=== PATIENT | male | born 1950 | race Caucasian/White ===

== ENCOUNTER 2017-02-09 08:52 | Day surgery (SDC) | payer BC ==
--- NOTE | ~2017-02-09 | EGD ---
EGD REPORT [facility] [address] [address] NAME: MARK HAYWOOD KRISTOPHER : [birth year] STATUS : REG [facility]#: [id number] AGE: 66 ADM/REG DATE : 02/09/17 MR#: [id number] REPORT SERV DATE: 02/09/17 DICTATED BY: DATE: REPORT STATUS : Draft TRANSCRIBED BY: [employer] DATE: 02/09/17 [facility] Patient Name: Mark Haywood Date of : 1950 Attending MD: SALOIN LANTIGUA MD Procedure Date No Time: 02/09/2017 Procedure: Colonoscopy Indications: Abdominal pain, Hematochezia, Change in bowel habits; Family history colon cancer Referring MD: SOFÍA GONZALEZ JR. Medicines: Monitored Anesthesia Care Complications: No immediate complications. Procedure: Pre-Anesthesia Assessment: - ASA Grade Assessment: II - A patient with mild systemic disease. After I obtained informed consent, the scope was passed under direct vision. Throughout the procedure, the patient's blood pressure, pulse, and oxygen saturations were monitored continuously. The PCF [id number] was introduced through the anus and advanced to the cecum, identified by appendiceal orifice and ileocecal valve. The colonoscopy was performed without difficulty. The patient tolerated the procedure well. The quality of the bowel preparation was excellent. Findings: The perianal exam was abnormal. Findings include hemorrhoids. The colon (entire examined portion) appeared normal. There is no endoscopic evidence of diverticula, inflammation, mass, polyps, ulcerations or angioectasia in the entire colon. Internal hemorrhoids were found during retroflexion and were Grade II (internal hemorrhoids that prolapse but reduce spontaneously). No additional abnormalities were found on retroflexion. Impression: - Hemorrhoids found on perianal exam. - The entire examined colon is normal. - Internal hemorrhoids. Recommendation: - Patient has a contact number available for emergencies. The signs and symptoms of potential delayed complications were discussed with the patient. Return to normal activities tomorrow. Written discharge instructions were provided to the patient. - High fiber diet. - Discharge patient to home. EGD REPORT [address] [address] NAME: MARK HAYWOOD MD : [birth year] STATUS : REG [facility] [place] PAT#: [id number] AGE: 66 ADM/REG DATE : 02/09/17 MR#: [id number] REPORT SERV DATE: 02/09/17 DICTATED BY: DATE: REPORT STATUS : Draft TRANSCRIBED BY: [employer] DATE: 02/09/17 - Continue present medications. - Repeat colonoscopy in 5 years for screening purposes. Procedure Code(s): --- Professional --- 30898, Colonoscopy, flexible, proximal to splenic flexure; diagnostic, with or without collection of specimen(s) by brushing or washing, with or without colon decompression (separate procedure) Diagnosis Code(s): --- Professional --- K64.1, Second degree hemorrhoids R10.9, Unspecified abdominal pain K92.1, Melena R19.4, Change in bowel habit CPT copyright 2013 [employer]. All rights reserved. The codes documented in this report are preliminary and upon front line supervisor review may be revised to meet current compliance requirements. SALONI LANTIGUA MD 02/09/2017 12:54 PM This report has been signed electronically. Number of Addenda: 0 Note Initiated On: 02/09/2017 10:28 AM Scope Withdrawal Time 0 hours 8 minutes 15 seconds [address] [place] [address]
--- NOTE | ~2017-02-09 | EGD ---
EGD REPORT [facility] [address] [address] NAME: MARK HAYWOOD KRISTOPHER TOUSSAINT : [birth year] STATUS : REG [facility]#: [id number] AGE: 66 ADM/REG DATE : 02/09/17 MR#: [id number] REPORT SERV DATE: 02/09/17 DICTATED BY: DATE: REPORT STATUS : Draft TRANSCRIBED BY: [employer] DATE: 02/09/17 [facility] Patient Name: Mark Haywood Date of : 1950 Attending MD: SALONI LANTIGUA MD Procedure Date No Time: 02/09/2017 Procedure: Upper GI endoscopy Indications: Epigastric abdominal pain Referring MD: SOFÍA GONZALEZ JR. Medicines: Monitored Anesthesia Care Complications: No immediate complications. Procedure: Pre-Anesthesia Assessment: - ASA Grade Assessment: II - A patient with mild systemic disease. After obtaining informed consent, the endoscope was passed under direct vision. Throughout the procedure, the patient's blood pressure, pulse, and oxygen saturations were monitored continuously. The GIF H190 [id number] was introduced through the mouth, and advanced to the third part of duodenum. The upper GI endoscopy was accomplished without difficulty. The patient tolerated the procedure well. Findings: The examined esophagus was mildly tortuous. The Z-line was irregular and was found 42 cm from the incisors. Biopsies were taken with a cold forceps for histology. No other significant abnormalities were identified in a careful examination of the esophagus. There is no endoscopic evidence of areas of erosion, hiatus hernia, ulcerations or varices in the entire esophagus. Diffuse atrophic mucosa was found in the gastric body and in the gastric antrum. Biopsies were taken with a cold forceps for histology. A single diminutive sessile polyp was found on the greater curvature of the stomach. The polyp was removed with a cold biopsy forceps. Resection and retrieval were complete. No other significant abnormalities were identified in a careful examination of the stomach. There is no endoscopic evidence of ulceration or varices in the entire examined stomach. The examined duodenum was normal. Biopsies were taken with a cold forceps for histology. There is no endoscopic evidence of inflammation, mucosal abnormalities or ulceration in the entire examined duodenum. The cardia and gastric fundus were normal on retroflexion. EGD REPORT [address] [address] NAME: MARK HAYWOOD MD : [birth year] STATUS : REG [facility] [place] PAT#: [id number] AGE: 66 ADM/REG DATE : 02/09/17 MR#: [id number] REPORT SERV DATE: 02/09/17 DICTATED BY: DATE: REPORT STATUS : Draft TRANSCRIBED BY: [employer] DATE: 02/09/17 Impression: - Tortuous esophagus. - Z-line irregular, 42 cm from the incisors. Biopsied. - Gastric mucosal atrophy. Biopsied. - A single gastric polyp. Resected and retrieved. - Normal examined duodenum. Biopsied. Recommendation: - Patient has a contact number available for emergencies. The signs and symptoms of potential delayed complications were discussed with the patient. Return to normal activities tomorrow. Written discharge instructions were provided to the patient. - Return to previous diet. - Discharge patient to home. - Continue present medications. - Await pathology results. Procedure Code(s): --- Professional --- 67938, Esophagogastroduodenoscopy, flexible, transoral; with biopsy, single or multiple Diagnosis Code(s): --- Professional --- Q39.9, Congenital malformation of esophagus, unspecified K22.8, Other specified diseases of esophagus K31.89, Other diseases of stomach and duodenum K31.7, Polyp of stomach and duodenum R10.13, Epigastric pain CPT copyright 2013 [employer]. All rights reserved. The codes documented in this report are preliminary and upon plastics fitter review may be revised to meet current compliance requirements. SALONI LANTIGUA MD 02/09/2017 12:52 PM This report has been signed electronically. Number of Addenda: 0 Note Initiated On: 02/09/2017 10:30 AM Scope Withdrawal Time 0 hours 0 minutes 0 seconds [address] [address]
[~2017-02-09 08:52] MED LIST: AMB10; ASAB PO; CRESTOR20 MG PO; DYMISTA NASAL S23 GM NAS; FLOMAX4 PO; IMITREX50; IMITREX50 PO; KLONO5 PO; LEXAPRO20 PO; P5 PO; PERCOCET 10/3251 TAB PO; TRAZ50 PO; ZETIA PO
== END 2017-02-09 23:59 | disposition home or self-care (01) ==
LOC: DMU 08:52
PROVIDERS: Internal Medicine Gastroenterology
PROC: 0DB68ZX Excision of Stomach, Via Natural or Artificial Opening Endoscopic, Diagnostic (ICD-10-PCS; 2017-02-09)
PROC: 0DJD8ZZ Inspection of Lower Intestinal Tract, Via Natural or Artificial Opening Endoscopic (ICD-10-PCS; 2017-02-09)
PROC: 0DB98ZX Excision of Duodenum, Via Natural or Artificial Opening Endoscopic, Diagnostic (ICD-10-PCS; principal; 2017-02-09 11:30)
PROC: 0DB58ZX Excision of Esophagus, Via Natural or Artificial Opening Endoscopic, Diagnostic (ICD-10-PCS; 2017-02-09 11:30)
DX: K92.1 Melena (principal); K64.1 Second degree hemorrhoids; Q39.9 Congenital malformation of esophagus, unspecified; K22.8 Other specified diseases of esophagus; K31.89 Other diseases of stomach and duodenum; K31.7 Polyp of stomach and duodenum; K22.70 Barrett's esophagus without dysplasia; K21.9 Gastro-esophageal reflux disease without esophagitis; G62.9 Polyneuropathy, unspecified; G89.29 Other chronic pain; G43.909 Migraine, unspecified, not intractable, without status migrainosus; G25.81 Restless legs syndrome; N40.0 Benign prostatic hyperplasia without lower urinary tract symptoms; G47.33 Obstructive sleep apnea (adult) (pediatric); Z88.0 Allergy status to penicillin; Z88.1 Allergy status to other antibiotic agents; Z79.82 Long term (current) use of aspirin; Z79.891 Long term (current) use of opiate analgesic; Z79.899 Other long term (current) drug therapy; Z90.89 Acquired absence of other organs; Z90.49 Acquired absence of other specified parts of digestive tract; Z98.890 Other specified postprocedural states
CPT/HCPCS: 88305